=== PATIENT | female | born 1950 | race Caucasian/White ===

== ENCOUNTER 2019-11-28 07:27 | Emergency (ER) | payer MEDICARE, BC ==
[~2019-11-28] VITALS: Ht 165.1 cm; Wt 65.0 kg
[2019-11-28 07:32] VITALS: BP 192/76
[2019-11-28] MEDS ORDERED: BENZ-16 PO (08:23)
[2019-11-28] MEDS ORDERED: PRED50TA PO (08:23)
[2019-11-28] MEDS ORDERED: ipratropium/albuterol 3ml nebule NEB ONE (08:25)
[2019-11-28] MEDS ORDERED: DOXY100C76 PO (08:47)
== END 2019-11-28 09:17 | disposition home or self-care (01) ==
LOC: ER 07:28
DX: B34.9 Viral infection, unspecified (principal); J02.9 Acute pharyngitis, unspecified; J45.909 Unspecified asthma, uncomplicated; Z79.899 Other long term (current) drug therapy
CPT/HCPCS: 71046; 94640; 94760; 99283

== ENCOUNTER 2019-12-06 07:11 | Emergency (ER) | payer MEDICARE, BC ==
[~2019-12-06] VITALS: Ht 165.1 cm; Wt 75.0 kg
[~2019-12-06 07:11] MED LIST: BENZ-16 PO; PRED50TA PO
[2019-12-06] MEDS ORDERED: losartan 50mg tablet PO SCH (07:30)
[2019-12-06] MEDS ORDERED: losartan 50mg tablet PO ONE (07:30)
[2019-12-06] MEDS ORDERED: albuterol 2.5 MG/3 ML nebule CONTNEB PRN (07:55)
[2019-12-06] MEDS ORDERED: dexamethasone sod phosphate 10mg/ml inj IV STA (07:55)
[2019-12-06 08:03] LABS: CLARITY,URINE CLEAR (Clear); COLOR,URINE YELLOW (Yellow); GLUCOSE, URINE NEGATIVE (Neg); KETONES,URINE NEGATIVE (Neg); LEUKOCYTE ESTERASE ,URINE TRACE (Neg); NITRITES, URINE NEGATIVE (Neg); OCCULT BLOOD,URINE TRACE-LYSED (Neg); PROTEIN,URINE NEGATIVE (Neg); UROBILINOGEN,URINE 0.2 E.U/dL (0.2-1.0)
[2019-12-06 08:04] LABS: UA COLLECTION TYPE CLN CATCH MIDSTREAM
[2019-12-06 08:12] LABS: BACTERIA,URINE 1+ /HPF (Neg); MUCUS STRANDS FEW /LPF (Neg); RBC,URINE 0-2 /HPF (0-2); SQUAMOUS EPITHELIAL CELL,UR MANY /LPF (FEW); WBC,URINE 0-4 /HPF (0-4)
[2019-12-06 08:21] LABS: BASOPHILS # (AUTO) 0.1 X10'3 (0-0.2); BASOPHILS % (AUTO) 0.8 % (0-1); EOSINOPHILS # (AUTO) 0.1 X10'3 (0-0.9); EOSINOPHILS % (AUTO) 1.2 % (0-6); HEMATOCRIT 36.8 % (35.0-45.0); HEMOGLOBIN 12.7 g/dl (12.0-16.0); LYMPHOCYTES # (AUTO) 1.9 X10'3 (1.1-4.8); MEAN CORPUSCULAR HEMOGLOBIN 31.3 PG (27.0-31.0); MEAN CORPUSCULAR HGB CONC 34.4 g/dL (33.0-36.5); MEAN PLATELET VOLUME 6.9 FL (7.4-10.4); MONOCYTES # (AUTO) 0.9 X10'3 (0-0.9); MONOCYTES % (AUTO) 8.3 % (2-12); NEUTROPHILS % (AUTO) 72.7 % (42-75); PLATELET COUNT 426 X10'3 (140-440); RED BLOOD COUNT 4.05 X10'6 (4.20-5.60); RED CELL DISTRIBUTION WIDTH 12.9 % (11.5-14.5)
[2019-12-06] MEDS ORDERED: CefTRIAXone/D5W-Rocephin 1gm 50 ML IV ONE (08:30)
[2019-12-06] MEDS ORDERED: azithromycin 250mg tablet PO ONE (08:30)
[2019-12-06] MEDS ORDERED: PRED20TA PO (08:32)
[2019-12-06] MEDS ORDERED: AZIT250T83 PO (08:32)
[2019-12-06 08:37] LABS: ALANINE AMINOTRANSFERASE 36 U/L (12-78); ALBUMIN 3.7 G/DL (3.4-5.0); ALBUMIN/GLOBULIN RATIO 0.9 (1.1-1.5); ALKALINE PHOSPHATASE 47 IU/L (46-116); ANION GAP 8 (8-16); ASPARTATE AMINO TRANSFERASE 22 U/L (10-37); BILIRUBIN,TOTAL 0.4 MG/DL (0.1-1.0); BLOOD UREA NITROGEN 12 MG/DL (7-18); BUN/CREATININE RATIO 14.5 (6.6-38.0); C-REACTIVE PROTEIN 0.97 MG/DL (0.0-0.5); CALCIUM 9.4 MG/DL (8.5-10.1); CHLORIDE 100 MMOL/L (99-107); CREATININE 0.83 MG/DL (0.40-0.90); GLUCOSE 122 MG/DL (70-104); POTASSIUM 4.2 MMOL/L (3.5-5.1); SODIUM 133 MMOL/L (135-145); TOTAL CARBON DIOXIDE 25.3 MMOL/L (24-32); TOTAL PROTEIN 7.8 G/DL (6.4-8.2); eGFR 68 ML/MIN
[2019-12-06 10:06] VITALS: BP 162/68
--- NOTE | 2019-12-06 10:17 | NUR ---
RT RETURNED TO END 1HR LONG LEONEL JARRELL, PT HAD ALREADY BEEN DISCHARGED PER RN. UNABLE TO CHART POST VITALS.
== END 2019-12-06 10:21 | disposition home or self-care (01) ==
LOC: ER 07:11
DX: J15.9 Unspecified bacterial pneumonia (principal); J45.901 Unspecified asthma with (acute) exacerbation; Z87.891 Personal history of nicotine dependence; Z79.899 Other long term (current) drug therapy
CPT/HCPCS: 36415; 71046; 80053; 81001; 85025; 86140; 87502; 87503; 94644; 96365; 96375; 99285; J0696; J1100; 94760

== ENCOUNTER 2020-04-10 20:31 | Emergency (ER) | payer MEDICARE, BC ==
[~2020-04-10] VITALS: Ht 165.1 cm; Wt 81.7 kg
[2020-04-10] MEDS ORDERED: ceFAZolin 1gm IM kit IM ONE (21:10)
--- NOTE | 2020-04-10 21:37 | NUR ---
Per Dr. Foley order Tylenol 650mg po now for pain.
[2020-04-10] MEDS ORDERED: acetaminophen 325mg tablet PO ONE (21:40)
[2020-04-10] MEDS ORDERED: SULF1TAB49 PO (21:47)
[2020-04-10 22:11] VITALS: BP 142/66
== END 2020-04-10 22:15 | disposition home or self-care (01) ==
LOC: ER 20:32
DX: S51.811A Laceration without foreign body of right forearm, initial encounter (principal); S00.83XA Contusion of other part of head, initial encounter; T14.8XXA Other injury of unspecified body region, initial encounter; W18.30XA Fall on same level, unspecified, initial encounter; W22.8XXA Striking against or struck by other objects, initial encounter; Y93.89 Activity, other specified; Y92.89 Other specified places as the place of occurrence of the external cause; F10.129 Alcohol abuse with intoxication, unspecified; I10 Essential (primary) hypertension; J44.9 Chronic obstructive pulmonary disease, unspecified; Z72.89 Other problems related to lifestyle; Y99.8 Other external cause status; Y90.0 Blood alcohol level of less than 20 mg/100 ml
CPT/HCPCS: 12002; 70450; 72125; 96372; 99285; J0690

== ENCOUNTER 2022-05-20 09:22 | Emergency (ER) | payer MEDICARE, BC ==
[~2022-05-20] VITALS: Ht 162.6 cm; Wt 70.5 kg
[2022-05-20 09:33] VITALS: BP 228/86
[2022-05-20] MEDS ORDERED: LIDOcaine 5% patch TP STA (09:38)
[2022-05-20] MEDS ORDERED: acetaminophen 325mg tablet PO ONE (09:40)
[2022-05-20] MEDS ORDERED: HYDROcodone/acetaminophen 5mg/325mg tablet PO ONE (09:40)
--- NOTE | 2022-05-20 09:41 | NUR ---
MILKA GUERRA MADE AWARE OF PT HTN 228/85. RECEIVED ORDER FOR EKG. PT DENIES ANY SYMPTOMS
[2022-05-20] MEDS ORDERED: IBUP-1986 PO (10:31)
[2022-05-20] MEDS ORDERED: LIDO700A32 TOP (10:31)
[2022-05-20] MEDS ORDERED: HYDR-3965 PO (10:31)
[2022-05-20] MEDS ORDERED: ketorolac trometh. 30mg/ml inj. IM ONE (10:55)
== END 2022-05-20 11:07 | disposition home or self-care (01) ==
LOC: ER 09:22
DX: G89.29 Other chronic pain (principal); M54.42 Lumbago with sciatica, left side; M54.41 Lumbago with sciatica, right side; I10 Essential (primary) hypertension; J44.9 Chronic obstructive pulmonary disease, unspecified; Z88.8 Allergy status to other drugs, medicaments and biological substances; Z79.899 Other long term (current) drug therapy
CPT/HCPCS: 96372; 99284; J1885; 93005

== ENCOUNTER 2022-06-28 06:44 | Day surgery (SDC) | payer MEDICARE, BC ==
[2022-06-28] VITALS (9 sets, daily range): BP systolic 117–157; BP diastolic 48–68
[~2022-06-28] VITALS: Ht 162.6 cm; Wt 66.0 kg
[~2022-06-28 06:44] MED LIST changes: +IBUP-1986 PO; +LIDO700A32 TOP
[2022-06-28] MEDS ORDERED: cefazolin/dext.iso 2gm/100ml 100 ML IV ONE (07:30)
[2022-06-28] MEDS ORDERED: LIDOcaine 1%/PF 5ML 10 MG/ML VIAL ONE (08:12)
[2022-06-28] MEDS ORDERED: midazolam 1 mg/ML 2ml injection ONE ×3 (08:12→09:46)
[2022-06-28] MEDS ORDERED: fentaNYL/PF 50MCG/1 ML 2ML syringe ONE ×3 (08:12→09:50)
[2022-06-28] MEDS ORDERED: iohexol 300 MG/1 ML 10ml vial ONE ×2 (08:13→09:59)
[2022-06-28] MEDS ORDERED: BUDE10.26 INH (08:19)
[2022-06-28] MEDS ORDERED: IBUP-1984 PO (08:19)
[2022-06-28] MEDS ORDERED: LIDO700A47 TOP (08:19)
[2022-06-28] MEDS ORDERED: LOSA100T57 PO (08:19)
[2022-06-28] MEDS ORDERED: AMLO5TAB16 PO (08:19)
[2022-06-28] MEDS ORDERED: IPRA4AER INH (08:19)
[2022-06-28] MEDS ORDERED: HYDR-3964 PO (08:19)
[2022-06-28] MEDS ORDERED: ATEN25TA PO (08:19)
[2022-06-28] MEDS ORDERED: LEVO50TA8 PO (08:19)
[2022-06-28] MEDS ORDERED: ZOLP5TAB8 PO (08:19)
[2022-06-28] MEDS ORDERED: MULT-622 PO (08:19)
[2022-06-28] MEDS ORDERED: METH-797 PO (08:19)
[2022-06-28 08:45] LABS: BASOPHILS % (AUTO) 0.2 % (0-1); EOSINOPHILS % (AUTO) 0.4 % (0-6); HEMATOCRIT 32.5 % (35.0-45.0); HEMOGLOBIN 11.1 g/dl (12.0-16.0); LYMPHOCYTES # (AUTO) 1.2 X10'3 (1.1-4.8); LYMPHOCYTES % (AUTO) 19.2 % (21-51); MEAN CORPUSCULAR HEMOGLOBIN 31.1 PG (27.0-31.0); MEAN CORPUSCULAR VOLUME 91.6 FL (78-98); MEAN PLATELET VOLUME 6.7 FL (7.4-10.4); MONOCYTES # (AUTO) 0.2 X10'3 (0-0.9); MONOCYTES % (AUTO) 3.8 % (2-12); NEUTROPHILS # (AUTO) 4.6 X10'3 (1.8-7.7); NEUTROPHILS % (AUTO) 76.4 % (42-75); PLATELET COUNT 294 X10'3 (140-440); RED BLOOD COUNT 3.55 X10'6 (4.20-5.60); RED CELL DISTRIBUTION WIDTH 15.4 % (11.5-14.5); WHITE BLOOD COUNT 6.1 X10'3 (4.5-11.0)
[2022-06-28] MEDS ORDERED: diphenhydrAMINE 50 mg/ml inj ONE (09:00)
[2022-06-28] MEDS ORDERED: morphine 4 MG/ML inj SYRINge IV PRN (10:30)
[2022-06-28] MEDS ORDERED: normal saline 1000ml 1,000 ML IV SCH (10:30)
== END 2022-06-28 13:45 | disposition home or self-care (01) ==
LOC: SSTAY O 06:44
PROVIDERS: ATTEND Radiology Vascular & Interventional Radiology
DX: M80.08XA Age-related osteoporosis with current pathological fracture, vertebra(e), initial encounter for fracture (principal); M48.56XA Collapsed vertebra, not elsewhere classified, lumbar region, initial encounter for fracture; I10 Essential (primary) hypertension; E78.5 Hyperlipidemia, unspecified; J45.909 Unspecified asthma, uncomplicated; Z87.01 Personal history of pneumonia (recurrent); Z88.8 Allergy status to other drugs, medicaments and biological substances; Z98.890 Other specified postprocedural states
CPT/HCPCS: 22514; 22515; 36415; 85025; 88341; C1713; J1200; J2250; J2270; J3010; J3490; J7030; Q9967; 88173; 88305; 88342; 99152; 99153

== ENCOUNTER 2022-08-03 08:55 | Emergency (ER) | payer MEDICARE, BC ==
[~2022-08-03] VITALS: Ht 162.6 cm; Wt 62.7 kg
[~2022-08-03 08:55] MED LIST changes: +AMLO5TAB16 PO; +ATEN25TA PO; -BENZ-16 PO; +BUDE10.26 INH; +HYDR-3964 PO; +IBUP-1984 PO; -IBUP-1986 PO; +IPRA4AER INH; +LEVO50TA8 PO; -LIDO700A32 TOP; +LIDO700A47 TOP; +LOSA100T57 PO; +METH-797 PO; +MULT-622 PO; -PRED50TA PO; +ZOLP5TAB8 PO
[2022-08-03] MEDS ORDERED: morphine 4 MG/ML inj SYRINge IV ONE (09:50)
[2022-08-03] MEDS ORDERED: normal saline 1000ML IV soln IVB ONE (09:50)
[2022-08-03] MEDS ORDERED: ondansetron/PF 4mg/2ml inj IV ONE (09:50)
[2022-08-03 10:44] LABS: CLARITY,URINE SLIGHTLY CLOUDY (Clear); COLOR,URINE YELLOW (Yellow); GLUCOSE, URINE NEGATIVE (Neg); KETONES,URINE NEGATIVE (Neg); LEUKOCYTE ESTERASE ,URINE NEGATIVE (Neg); NITRITES, URINE NEGATIVE (Neg); OCCULT BLOOD,URINE NEGATIVE (Neg); PROTEIN,URINE 30 mg/dl (Neg); UROBILINOGEN,URINE 0.2 E.U/dL (0.2-1.0)
[2022-08-03 10:47] LABS: UA COLLECTION TYPE CLN CATCH MIDSTREAM
[2022-08-03 10:49] LABS: SQUAMOUS EPITHELIAL CELL,UR MODERATE /LPF (FEW)
[2022-08-03 10:51] LABS: BACTERIA,URINE FEW /HPF (Neg); RBC,URINE 0-2 /HPF (0-2); WBC,URINE 0-4 /HPF (0-4)
[2022-08-03 11:18] LABS: BASOPHILS % (AUTO) 0.4 % (0-1); EOSINOPHILS % (AUTO) 0.1 % (0-6); HEMATOCRIT 31.9 % (35.0-45.0); HEMOGLOBIN 10.9 g/dl (12.0-16.0); LYMPHOCYTES # (AUTO) 1.1 X10'3 (1.1-4.8); LYMPHOCYTES % (AUTO) 24.8 % (21-51); MEAN CORPUSCULAR HEMOGLOBIN 31.5 PG (27.0-31.0); MEAN CORPUSCULAR HGB CONC 34.2 g/dL (33.0-36.5); MEAN CORPUSCULAR VOLUME 92.2 FL (78-98); MEAN PLATELET VOLUME 6.9 FL (7.4-10.4); MONOCYTES # (AUTO) 0.2 X10'3 (0-0.9); MONOCYTES % (AUTO) 3.5 % (2-12); NEUTROPHILS # (AUTO) 3.3 X10'3 (1.8-7.7); NEUTROPHILS % (AUTO) 71.2 % (42-75); PLATELET COUNT 326 X10'3 (140-440); RED BLOOD COUNT 3.46 X10'6 (4.20-5.60); RED CELL DISTRIBUTION WIDTH 15.4 % (11.5-14.5); WHITE BLOOD COUNT 4.6 X10'3 (4.5-11.0)
[2022-08-03 11:31] LABS: APTT 29 SECONDS (22-32)
[2022-08-03 11:32] LABS: ALANINE AMINOTRANSFERASE 18 U/L (12-78); ALBUMIN 3.4 G/DL (3.4-5.0); ALBUMIN/GLOBULIN RATIO 0.5 (1.1-1.5); ALKALINE PHOSPHATASE 63 IU/L (46-116); ANION GAP 9 (8-16); ASPARTATE AMINO TRANSFERASE 17 U/L (10-37); BILIRUBIN,TOTAL 0.3 MG/DL (0.1-1.0); BLOOD UREA NITROGEN 10 MG/DL (7-18); BUN/CREATININE RATIO 13.9 (6.6-38.0); CALCIUM 9.9 MG/DL (8.5-10.1); CHLORIDE 95 MMOL/L (99-107); CREATININE 0.72 MG/DL (0.40-0.90); GLUCOSE 142 MG/DL (70-104); POTASSIUM 3.3 MMOL/L (3.5-5.1); SODIUM 133 MMOL/L (135-145); TOTAL CARBON DIOXIDE 29.3 MMOL/L (24-32); TOTAL PROTEIN 10.3 G/DL (6.4-8.2); eGFR 80 ML/MIN
[2022-08-03 11:35] LABS: ETHANOL < 0.010 GM/DL (0.0-0.010); LIPASE 105 U/L (73-393)
[2022-08-03] MEDS ORDERED: potassium CL 10mEq/100ml bag 100 ML IV ONE (12:40)
[2022-08-03 12:51] LABS: MAGNESIUM 1.8 MG/DL (1.5-2.4)
[2022-08-03] MEDS ORDERED: diazepam inj 5 MG/ML inj. IV ONE (13:15)
--- NOTE | 2022-08-03 13:19 | NUR ---
PROVIDER AWARE OF PT B/P
[2022-08-03] MEDS: magnesium 2GM in 50ml NS 50 ML IV SCH ×2 (13:20→13:40)
[2022-08-03 13:35] LABS: OCCULT BLOOD STOOL NEGATIVE (Neg)
[2022-08-03] MEDS ORDERED: HYDR-3965 PO (14:23)
[2022-08-03] MEDS ORDERED: CYCL-1 PO (14:23)
[2022-08-03 16:28] VITALS: BP 178/82
== END 2022-08-03 16:40 | disposition home or self-care (01) ==
LOC: ER 08:55
DX: M54.50 Low back pain, unspecified (principal); G89.29 Other chronic pain; R10.31 Right lower quadrant pain; R19.7 Diarrhea, unspecified; I10 Essential (primary) hypertension; J44.9 Chronic obstructive pulmonary disease, unspecified; Z72.89 Other problems related to lifestyle; Z88.8 Allergy status to other drugs, medicaments and biological substances; Z79.899 Other long term (current) drug therapy
CPT/HCPCS: 36415; 71045; 74176; 80053; 80320; 81001; 82272; 83690; 83735; 84484; 85025; 85610; 85730; 96365; 96366; 96375; 99285; J2270; J2405; J3360; J3475; J3480; J7030

== ENCOUNTER 2023-04-07 07:04 | Inpatient (IN) | payer MEDICARE, BC ==
[~2023-04-07] VITALS: Ht 157.5 cm; Wt 59.1 kg
[~2023-04-07 07:04] MED LIST changes: +CYCL-1 PO; -LOSA100T57 PO; +LOSA100T58 PO
[2023-04-07 08:11] LABS: ALANINE AMINOTRANSFERASE 15 U/L (12-78); ALBUMIN 3.1 G/DL (3.4-5.0); ALBUMIN/GLOBULIN RATIO 1.2 (1.1-1.5); ANION GAP 13 (8-16); ASPARTATE AMINO TRANSFERASE 12 U/L (10-37); BILIRUBIN,TOTAL 0.5 MG/DL (0.1-1.0); BLOOD UREA NITROGEN 6 MG/DL (7-18); BUN/CREATININE RATIO 9.1 (10.0-20.0); CHLORIDE 103 MMOL/L (99-107); CREATININE 0.66 MG/DL (0.40-0.90); GLUCOSE 121 MG/DL (70-104); MAGNESIUM 1.4 MG/DL (1.5-2.4); POTASSIUM 3.4 MMOL/L (3.5-5.1); SODIUM 137 MMOL/L (135-145); TOTAL CARBON DIOXIDE 21.4 MMOL/L (24-32); TOTAL PROTEIN 5.6 G/DL (6.4-8.2); eGFR 88 ML/MIN
[2023-04-07 08:22] LABS: ALKALINE PHOSPHATASE 77 IU/L (46-116)
[2023-04-07 08:49] LABS: CLARITY,URINE CLEAR (Clear); COLOR,URINE YELLOW (Yellow); GLUCOSE, URINE NEGATIVE (Neg); KETONES,URINE NEGATIVE (Neg); LEUKOCYTE ESTERASE ,URINE NEGATIVE (Neg); NITRITES, URINE NEGATIVE (Neg); OCCULT BLOOD,URINE NEGATIVE (Neg); PH,URINE 5.5 (4.8-8.0); PROTEIN,URINE NEGATIVE (Neg); UROBILINOGEN,URINE 0.2 E.U/dL (0.2-1.0)
[2023-04-07 08:53] LABS: UA COLLECTION TYPE CLN CATCH MIDSTREAM
[2023-04-07 09:12] LABS: BASOPHILS % (AUTO) 0.1 % (0-1); EOSINOPHILS % (AUTO) 0.7 % (0-6); HEMATOCRIT 25.6 % (35.0-45.0); HEMOGLOBIN 8.8 g/dl (12.0-16.0); LYMPHOCYTES # (AUTO) 0.2 X10'3 (1.1-4.8); LYMPHOCYTES % (AUTO) 30.2 % (21-51); MEAN CORPUSCULAR HEMOGLOBIN 31.2 PG (27.0-31.0); MEAN CORPUSCULAR HGB CONC 34.1 g/dL (33.0-36.5); MEAN CORPUSCULAR VOLUME 91.5 FL (78-98); MEAN PLATELET VOLUME 6.9 FL (7.4-10.4); MONOCYTES # (AUTO) 0.4 X10'3 (0-0.9); MONOCYTES % (AUTO) 67.7 % (2-12); NEUTROPHILS % (AUTO) 1.3 % (42-75); PLATELET COUNT 244 X10'3 (140-440); RED CELL DISTRIBUTION WIDTH 15.9 % (11.5-14.5)
[2023-04-07 09:14] LABS: WHITE BLOOD COUNT 0.6 X10'3 (4.5-11.0)
[2023-04-07] MEDS ORDERED: magnesium 2GM in 50ml NS 50 ML IV ONE (09:45)
[2023-04-07] MEDS ORDERED: cefepime 2g/NS 100ml ADVANTAGE 100 ML IV ONE (09:45)
[2023-04-07] MEDS ORDERED: acetaminophen 1,000mg/100ml IV 100 ML IV ONE (10:00)
[2023-04-07] MEDS ORDERED: vancomycin/NS 1 GM ADD-VANTAGE 250 ML IV ONE (10:00)
[2023-04-07 10:08] LABS: PLATELET ESTIMATE NORMAL
[2023-04-07 10:09] LABS: ELLIPTOCYTES FEW; TEAR DROP CELLS FEW
[2023-04-07] MEDS ORDERED: magnesium 2GM in 50ml NS 50 ML IV PRN (13:30)
[2023-04-07] MEDS ORDERED: diphenhydrAMINE 25mg capsule PO PRN (13:30)
[2023-04-07] MEDS ORDERED: acetaminophen 325mg tablet PO PRN ×2 (13:30)
[2023-04-07] MEDS ORDERED: potassium Cl 20 mEq SR tablet PO PRN (13:30)
[2023-04-07] MEDS ORDERED: bisacodyl 10mg suppository rectal RC PRN (13:30)
[2023-04-07] MEDS ORDERED: potassium Cl 40MEQ/1/2NS 520ml 520 ML IV PRN (13:30)
[2023-04-07] MEDS ORDERED: mag hydrox/Alum hydrox/simeth 30ml oral suspension PO PRN (13:30)
[2023-04-07] MEDS ORDERED: magnesium hydroxide 30ml (MOM) UD suspension PO PRN (13:30)
[2023-04-07] MEDS ORDERED: morphine 2 MG/ML inj. syringe IV PRN ×2 (13:30)
[2023-04-07] MEDS ORDERED: acetaminophen 650mg rectal suppository RC PRN (13:30)
[2023-04-07] MEDS ORDERED: HYDROcodone/acetaminophen 5mg/325mg tablet PO PRN (13:30)
[2023-04-07] MEDS ORDERED: ondansetron/PF 4mg/2ml inj IV PRN (13:30)
[2023-04-07] MEDS ORDERED: magnesium 4gm in 100ml NS 100 ML IV PRN (13:30)
[2023-04-07] MEDS: normal saline 1000ml 1,000 ML IV SCH ×2 (13:51→23:30)
[2023-04-07 13:52] LABS: HEMOGLOBIN A1C 5.6 % (4.5-6.2)
[2023-04-07] MEDS ORDERED: vancomycin inj 500 MG in normal saline 100ml IV soln 100 ML IV ONE (14:00)
[2023-04-07 15:52] VITALS: BP 133/53
[2023-04-07] MEDS ORDERED: normal saline 1000ml 1,000 ML IV ONE ×2 (16:20)
[2023-04-07 18:00] VITALS: BP 144/53
--- NOTE | 2023-04-07 18:35 | NUR ---
Received report from primary care nurse Mellisa SCHMITT. Assumed patient care. Patient is resting with relaxed and unlabored respirations on room air. Call light and items of frequent use within reach. Bed alarm on and audible. Will continue to monitor for changes.
--- NOTE | 2023-04-07 18:58 | NUR ---
RECEIVED ORDERS FROM DR. JEFFRIES FOR 2L BOLUS OF NS NOW. MEDS ADMINISTERED ORDERED.
--- NOTE | 2023-04-07 19:00 | NUR ---
Problems reprioritized. Patient report given, questions answered & plan of care reviewed with KESHIA ESTES.
[2023-04-07] MEDS: docusate sod 100mg capsule PO SCH (20:00)
[2023-04-07] MEDS: TBO-filgrastim 480 MCG/0.8ml syringe SQ SCH (20:05)
[2023-04-07] MEDS: cefepime 2g/NS 100ml ADVANTAGE 100 ML IV SCH (20:06)
[2023-04-07] MEDS: lactobacillus rhamnosus 10,000 MMU CELLS/CAPSULE PO SCH (20:11)
[2023-04-07] MEDS: potassium Cl 20 mEq SR tablet PO PRN (20:16)
[2023-04-07] MEDS: magnesium Cl slow-release 64mg tablet PO PRN (20:16)
[2023-04-07] MEDS: K and/or MAG REPLACEMENT MC SCH (20:17)
[2023-04-07] MEDS ORDERED: SULF1TAB45 PO (20:42)
[2023-04-07] MEDS ORDERED: LEVO750T68 PO (20:42)
[2023-04-07] MEDS ORDERED: ACYC-126 PO (20:42)
[2023-04-07] MEDS ORDERED: APIX5TAB3 PO (20:42)
[2023-04-07] MEDS ORDERED: GABA-530 PO (20:42)
[2023-04-07] MEDS ORDERED: FLUC200T93 PO (20:42)
[2023-04-07 22:00] VITALS: BP 120/47
[2023-04-07] MEDS ORDERED: vancomycin/NS 1 GM ADD-VANTAGE 250 ML IV SCH (23:00)
[2023-04-08] MEDS: HYDROcodone/acetaminophen 10/325mg tab PO PRN ×2 (01:44→19:37)
[2023-04-08 02:00] VITALS: BP 150/56
[2023-04-08] MEDS ORDERED: loperamide 2mg capsule PO PRN (02:00)
--- NOTE | 2023-04-08 02:07 | NUR ---
Noted patient coughing and burping after each sip of water. Notified MD of wound to right posterior ankle and coughing and burping after each sip. New orders obtained will implement.
[2023-04-08 06:00] VITALS: BP 143/55
--- NOTE | 2023-04-08 06:35 | NUR ---
Reported off to Mellisa RN. Patient is resting with relaxed and unlabored respirations on room air. In no apparent distress. Call light and items of frequent use within reach. Bed alarm on and audible.
--- NOTE | 2023-04-08 06:40 | NUR ---
Patient in room PCU 3011. I have received report from KESHIA ESTES, and had the opportunity to ask questions and assume patient care.PT RESTING COMFORTABLY, SHADE CLOSED PER PT REQUEST, NO OTHER NEEDS IDENTIFIED AT THIS TIME. WILL CONTINUE TO MONITOR.
[2023-04-08 07:51] LABS: LYMPHOCYTES # (AUTO) 0.1 X10'3 (1.1-4.8); MEAN CORPUSCULAR VOLUME 92.9 FL (78-98); MONOCYTES # (AUTO) 0.4 X10'3 (0-0.9)
[2023-04-08] MEDS: cefepime 2g/NS 100ml ADVANTAGE 100 ML IV SCH ×2 (07:51→19:26)
[2023-04-08 07:52] LABS: ALANINE AMINOTRANSFERASE 13 U/L (12-78); ALBUMIN 2.2 G/DL (3.4-5.0); ALBUMIN/GLOBULIN RATIO 0.9 (1.1-1.5); ALKALINE PHOSPHATASE 70 IU/L (46-116); ANION GAP 11 (8-16); ASPARTATE AMINO TRANSFERASE 13 U/L (10-37); BILIRUBIN,TOTAL 0.5 MG/DL (0.1-1.0); BLOOD UREA NITROGEN 10 MG/DL (7-18); BUN/CREATININE RATIO 15.4 (10.0-20.0); CHLORIDE 107 MMOL/L (99-107); CHOLESTEROL 96 MG/DL (0-200); CREATININE 0.65 MG/DL (0.40-0.90); GLUCOSE 79 MG/DL (70-104); HDL CHOLESTEROL 48 MG/DL (35-60); LDL CHOLESTEROL 28 MG/DL (50-100); MAGNESIUM 1.7 MG/DL (1.5-2.4); PHOSPHORUS 2.7 MG/DL (2.3-4.5); POTASSIUM 3.2 MMOL/L (3.5-5.1); SODIUM 137 MMOL/L (135-145); TOTAL CARBON DIOXIDE 18.7 MMOL/L (24-32); TOTAL PROTEIN 4.7 G/DL (6.4-8.2); TRIGLYCERIDES 85 MG/DL (20-135); eGFR 90 ML/MIN
[2023-04-08 07:56] LABS: BASOPHILS % (AUTO) 0.4 % (0-1); EOSINOPHILS % (AUTO) 2.3 % (0-6); HEMATOCRIT 27.7 % (35.0-45.0); HEMOGLOBIN 9.1 g/dl (12.0-16.0); LYMPHOCYTES % (AUTO) 24.5 % (21-51); MEAN CORPUSCULAR HEMOGLOBIN 30.7 PG (27.0-31.0); MONOCYTES % (AUTO) 68.7 % (2-12); NEUTROPHILS % (AUTO) 4.1 % (42-75); PLATELET COUNT 207 X10'3 (140-440); RED BLOOD COUNT 2.98 X10'6 (4.20-5.60); RED CELL DISTRIBUTION WIDTH 16.8 % (11.5-14.5)
[2023-04-08] MEDS: enoxaparin 40mg/0.4ml syringe SUBCUT SCH (07:58)
[2023-04-08] MEDS: lactobacillus rhamnosus 10,000 MMU CELLS/CAPSULE PO SCH ×2 (07:58→20:00)
[2023-04-08] MEDS: K and/or MAG REPLACEMENT MC SCH ×2 (08:00→20:00)
[2023-04-08] MEDS: docusate sod 100mg capsule PO SCH ×2 (08:00→20:00)
[2023-04-08 08:28] LABS: WHITE BLOOD COUNT 0.5 X10'3 (4.5-11.0)
--- NOTE | 2023-04-08 08:33 | NUR ---
PAGE SENT Message: [id number], NONI HOPSON, CRITICAL LAB: WBC 0.5. THANK YOU, KAYLA [id number] Custom Responses: promotional table spacer Transaction number: [id number]
[2023-04-08] MEDS: TBO-filgrastim 480 MCG/0.8ml syringe SQ SCH (08:34)
[2023-04-08] MEDS: normal saline 1000ml 1,000 ML IV SCH ×2 (09:30→19:30)
[2023-04-08] MEDS: potassium Cl 20 mEq SR tablet PO PRN ×3 (09:51→19:37)
[2023-04-08 12:00] VITALS: BP 151/64
--- NOTE | 2023-04-08 13:38 | NUR ---
PRESSURE ULCER EDUCATION: DEFINITION: A pressure ulcer is an area of skin that breaks down when you stay in one position too long. The constant pressure against the skin reduces the blood flow to that area and the affected tissue dies. CAUSES: "Being bedridden or in a wheelchair "Fragile skin "Having a chronic condition, such as diabetes or vascular disease "Inability to move certain parts of your body without assistance "Older age "Incontinence of urine or stool SYMPTOMS: "A reddened area that DOES NOT turn white when pressed on - this can be the beginning of a pressure ulcer "A blister, deep sore or a crater - these can be advanced pressure ulcers FIRST AID: "Relieve the pressure on this area "Keep the area clean and dry "Call your primary doctor if you see any of the above symptoms "DO NOT massage the area "DO NOT use a donut shaped or ring shaped pillow- these actually interfere with the blood flow and cause complications PREVENTION: "Check for pressure ulcers everyday "Change position at least every two hours to relieve pressure "Use items that help relieve pressure- pillows, sheepskin, foam padding, and powders. "Keep skin clean and dry "Eat healthy well balanced meals "Exercise daily IF YOU SEE ANY OF THESE SYMPTOMS WHILE IN THE HOSPITAL - TELL YOUR NURSE IMMEDIATELY. IF YOU SEE ANY OF THESE SYMPTOMS WHILE AT HOME OR HAVE ANY QUESTIONS OR CONCERNS ABOUT PRESSURE ULCERS - CALL YOUR PRIMARY DOCTOR IMMEDIATELY. Addendum: 04/08/23 at 1338 by Nan Toledo RN Amended: Links added.
[2023-04-08] MEDS ORDERED: LIDOcaine 1% 30ml preserv. free vial ONE (14:20)
[2023-04-08 15:45] VITALS: BP 151/56
--- NOTE | 2023-04-08 16:01 | NUR ---
PAGE SENT Message: [phone], NONI HOPSON, PT HAS TEMP OF 100.2 F, ORAL. LUMBAR PUNCTURE DONE, AWAITING TRANSFER TO MRI. THANK YOU, KAYLA [id number] Custom Responses: promotional table spacer Transaction number: [id number]
--- NOTE | 2023-04-08 16:02 | NUR ---
DR. THAPA CONSULTED TO POST LUMBAR PUNCTURE PROTOCOL. DR. THAPA SAID MRI WOULD BE FINE.
--- NOTE | 2023-04-08 16:16 | NUR ---
PAGE SENT Message: [phone], NONI HOPSON, PT REFUSING MRI, REPORTING PAIN AND FATIGUE. PT VERBALIZES THAT SHE WANTS TO WAIT AND HAVE PROCEDURE DONE AT [facility] WITH HER REGULAR DR. ADMINISTERING PAIN MEDS. THANK YOU, KAYLA [phone] Custom Responses: promotional table spacer Transaction number: [id number]
--- NOTE | 2023-04-08 16:37 | NUR ---
Malnutrition consult: Pt admit for neutropenia with neutropenic sepsis: recent bone marrow transplant per H&P. During time of visit, pt reports no recent weight loss. Pt reports UBW is about 120-130 pounds and chair scaled wt this admit of 59.09kg (130 pounds) per EMR, also indicate no weight loss at this time. Pt does not meet a minimum of two malnutrition criteria at this time. Pt currently on neutropenic diet and EC7 with PO intake 0% x 3 meals including one refusal but not agreeable to discussing food preferences nor an ensure at this time. Pt also reports no chewing or swallowing difficulties. Limited nutrition interventions given patient's preference at this time. Not pt WBC 0.5 and receiving probiotic per EMR, TOÑA Macedo discussed with RN holding current probiotic per physician discretion given WBC. LBM on 04/08 per EMR. Will monitor PO intake trend and make recommendations as medically appropriate. Recommendations: 1)continue neutropenic and soft to chew diet; encourage PO 2)routine bowel care as medically needed 3)weekly weight 4)consider holding probiotic due to WBC of 0.5 per physician discretion Addendum: 04/08/23 at [address] Amended: Links added. Addendum: 04/08/23 at [address] TOÑA has reviewed and approves of above note.
--- NOTE | 2023-04-08 16:45 | NUR ---
PAGE SENT Message: [id number], NONI HOPSON PT AGREED TO MRI AND IS CURRENTLY OFF FLOOR. THANK YOU, KAYLA [phone] Custom Responses: promotional table spacer Transaction number: [id number]
--- NOTE | 2023-04-08 17:13 | NUR ---
PAGE SENT Message: [phone], NONI HOPSON, MESSAGE FROM [employer], HE RECOMMENDS DISCONTINUING CULTERELLE, THERE IS A SLIM CHANCE IT CAN CAUSE SEPSIS IN PT'S WITH LOW WBC. THANK YOU, KAYLA Ramirez [phone] Custom Responses: promotional table spacer Transaction number: [id number]
[2023-04-08 18:00] VITALS: BP 150/66
--- NOTE | 2023-04-08 18:20 | NUR ---
Received report from primary care nurse Mellisa SCHMITT. Assumed patient care. Patient is resting with relaxed and unlabored respirations on 2LNC. In no apparent distress. Bed alarms on and audible. Call light and items of frequent use within reach. Will continue to monitor for changes.
--- NOTE | 2023-04-08 18:20 | NUR ---
Problems reprioritized. Patient report given, questions answered & plan of care reviewed with KESHIA ESTES.
[2023-04-08 22:00] VITALS: BP 146/74
[2023-04-08] MEDS: vancomycin/NS 1 GM ADD-VANTAGE 250 ML IV SCH (22:53)
[2023-04-09 02:00] VITALS: BP 142/62
[2023-04-09] MEDS: normal saline 1000ml 1,000 ML IV SCH (05:33)
[2023-04-09] MEDS: ipratropium/albuterol 3ml nebule NEB PRN ×2 (05:58→11:07)
[2023-04-09 06:00] VITALS: BP 158/67
--- NOTE | 2023-04-09 06:20 | NUR ---
Patient in room PCU 3011. I have received report from KESHIA ESTES, and had the opportunity to ask questions and assume patient care.
[2023-04-09 06:21] LABS: BASOPHILS % (AUTO) 0.4 % (0-1); EOSINOPHILS # (AUTO) 0.1 X10'3 (0-0.9); EOSINOPHILS % (AUTO) 6.5 % (0-6); HEMATOCRIT 25.1 % (35.0-45.0); HEMOGLOBIN 8.2 g/dl (12.0-16.0); LYMPHOCYTES # (AUTO) 0.1 X10'3 (1.1-4.8); LYMPHOCYTES % (AUTO) 6.9 % (21-51); MEAN CORPUSCULAR HEMOGLOBIN 30.9 PG (27.0-31.0); MEAN CORPUSCULAR HGB CONC 32.5 g/dL (33.0-36.5); MEAN CORPUSCULAR VOLUME 94.9 FL (78-98); MEAN PLATELET VOLUME 7.4 FL (7.4-10.4); MONOCYTES # (AUTO) 0.7 X10'3 (0-0.9); MONOCYTES % (AUTO) 43.4 % (2-12); NEUTROPHILS # (AUTO) 0.7 X10'3 (1.8-7.7); NEUTROPHILS % (AUTO) 42.8 % (42-75); PLATELET COUNT 180 X10'3 (140-440); RED BLOOD COUNT 2.64 X10'6 (4.20-5.60); RED CELL DISTRIBUTION WIDTH 17.4 % (11.5-14.5); WHITE BLOOD COUNT 1.6 X10'3 (4.5-11.0)
--- NOTE | 2023-04-09 06:21 | NUR ---
Reported off to Mellisa RN. Patient is awake and alert on 2LNC. In no apparent distress. Call light and items of frequent use within reach. Bed alarm on and audible.
[2023-04-09 06:33] LABS: ALANINE AMINOTRANSFERASE 12 U/L (12-78); ALBUMIN/GLOBULIN RATIO 0.8 (1.1-1.5); ALKALINE PHOSPHATASE 70 IU/L (46-116); ANION GAP 15 (8-16); ASPARTATE AMINO TRANSFERASE 11 U/L (10-37); BILIRUBIN,TOTAL 0.6 MG/DL (0.1-1.0); BLOOD UREA NITROGEN 12 MG/DL (7-18); BUN/CREATININE RATIO 17.9 (10.0-20.0); CALCIUM 6.6 MG/DL (8.5-10.1); CHLORIDE 109 MMOL/L (99-107); CREATININE 0.67 MG/DL (0.40-0.90); GLUCOSE 69 MG/DL (70-104); MAGNESIUM 1.4 MG/DL (1.5-2.4); PHOSPHORUS 1.6 MG/DL (2.3-4.5); POTASSIUM 3.3 MMOL/L (3.5-5.1); SODIUM 138 MMOL/L (135-145); TOTAL PROTEIN 4.4 G/DL (6.4-8.2); eGFR 87 ML/MIN
[2023-04-09 06:40] LABS: TOTAL CARBON DIOXIDE 13.9 MMOL/L (24-32)
--- NOTE | 2023-04-09 06:42 | NUR ---
PAGE SENT Message: [id number], NONI HOPSON, CRITICAL LAB: CO2 13.9. THANK YOU, KAYLA [id number] Custom Responses: promotional table spacer Transaction number: [id number]
[2023-04-09 07:38] LABS: TOTAL CELLS COUNTED 100
[2023-04-09 07:39] LABS: ANISOCYTOSIS 2+; PLATELET ESTIMATE NORMAL
[2023-04-09] MEDS: docusate sod 100mg capsule PO SCH ×2 (08:00→19:10)
[2023-04-09] MEDS: K and/or MAG REPLACEMENT MC SCH ×2 (08:00→19:13)
[2023-04-09] MEDS: cefepime 2g/NS 100ml ADVANTAGE 100 ML IV SCH ×2 (08:17→19:27)
[2023-04-09] MEDS: potassium Cl 20 mEq SR tablet PO PRN ×2 (08:21→12:19)
[2023-04-09] MEDS: magnesium Cl slow-release 64mg tablet PO PRN (08:21)
[2023-04-09] MEDS: enoxaparin 40mg/0.4ml syringe SUBCUT SCH (08:26)
--- NOTE | 2023-04-09 10:32 | NUR ---
PAGE SENT [phone], NONI HOPSON, PT REQUESTING BREATHING TREATMENT. PT REPORTS SHE WANTS TO DISCUSS A MED SHE USES AT HOME. THANK YOU, KAYLA [id number]
[2023-04-09 11:00] VITALS: BP 146/70
[2023-04-09] MEDS: SODIUM BICARB 150mEq/D5W 1L 1,000 ML IV SCH ×2 (12:19→22:04)
[2023-04-09] MEDS: albuterol 2.5 MG/3 ML nebule NEB SCH ×2 (13:51→19:16)
[2023-04-09 15:00] VITALS: BP 130/63
[2023-04-09 18:00] VITALS: BP 130/54
--- NOTE | 2023-04-09 18:02 | NUR ---
Problems reprioritized. Patient report given, questions answered & plan of care reviewed with KESHIA ESTES.
--- NOTE | 2023-04-09 18:31 | NUR ---
Received report from primary care nurse Mellisa SCHMITT. Assumed patient care. Patient is awake and alert on 2LNC. In no apparent distress. Bed alarms on and audible. Call light and items of frequent use within reach. Will continue to monitor for changes.
[2023-04-09] MEDS: budesonide 0.5mg/2ml UD nebule IH SCH (19:16)
[2023-04-09] MEDS: HYDROcodone/acetaminophen 10/325mg tab PO PRN (19:28)
[2023-04-09] MEDS: vancomycin/NS 1 GM ADD-VANTAGE 250 ML IV SCH (22:08)
[2023-04-10 02:00] VITALS: BP 130/58
[2023-04-10] MEDS: albuterol 2.5 MG/3 ML nebule NEB SCH ×3 (02:21→14:29)
--- NOTE | 2023-04-10 06:25 | NUR ---
Reported off to Kris SCHMITT. Patient is awake and alert on 2LNC. In no apparent distress. Call light and items of frequent use within reach. Bed alarm on and audible.
[2023-04-10 06:58] LABS: BASOPHILS % (AUTO) 0.2 % (0-1); EOSINOPHILS # (AUTO) 0.3 X10'3 (0-0.9); EOSINOPHILS % (AUTO) 6.5 % (0-6); HEMOGLOBIN 7.1 g/dl (12.0-16.0); LYMPHOCYTES # (AUTO) 0.1 X10'3 (1.1-4.8); LYMPHOCYTES % (AUTO) 2.5 % (21-51); MEAN CORPUSCULAR HEMOGLOBIN 30.6 PG (27.0-31.0); MEAN CORPUSCULAR VOLUME 89.9 FL (78-98); MEAN PLATELET VOLUME 7.9 FL (7.4-10.4); MONOCYTES # (AUTO) 1.1 X10'3 (0-0.9); MONOCYTES % (AUTO) 21.8 % (2-12); NEUTROPHILS # (AUTO) 3.6 X10'3 (1.8-7.7); PLATELET COUNT 161 X10'3 (140-440); RED BLOOD COUNT 2.32 X10'6 (4.20-5.60); RED CELL DISTRIBUTION WIDTH 17.3 % (11.5-14.5); WHITE BLOOD COUNT 5.2 X10'3 (4.5-11.0)
[2023-04-10 07:07] LABS: HEMATOCRIT 20.9 % (35.0-45.0)
[2023-04-10] MEDS: budesonide 0.5mg/2ml UD nebule IH SCH (07:24)
[2023-04-10 07:28] VITALS: BP 107/65
[2023-04-10 07:30] LABS: ALANINE AMINOTRANSFERASE 10 U/L (12-78); ALBUMIN 1.6 G/DL (3.4-5.0); ALBUMIN/GLOBULIN RATIO 0.8 (1.1-1.5); ALKALINE PHOSPHATASE 78 IU/L (46-116); ANION GAP 11 (8-16); ASPARTATE AMINO TRANSFERASE 9 U/L (10-37); BILIRUBIN,TOTAL 0.4 MG/DL (0.1-1.0); BLOOD UREA NITROGEN 9 MG/DL (7-18); BUN/CREATININE RATIO 14.3 (10.0-20.0); CALCIUM 6.3 MG/DL (8.5-10.1); CHLORIDE 103 MMOL/L (99-107); CREATININE 0.63 MG/DL (0.40-0.90); GLUCOSE 147 MG/DL (70-104); MAGNESIUM 1.5 MG/DL (1.5-2.4); SODIUM 137 MMOL/L (135-145); TOTAL CARBON DIOXIDE 22.8 MMOL/L (24-32); TOTAL PROTEIN 3.7 G/DL (6.4-8.2); eGFR > 90 ML/MIN
[2023-04-10 07:43] LABS: PHOSPHORUS 0.6 MG/DL (2.3-4.5); POTASSIUM 2.6 MMOL/L (3.5-5.1)
[2023-04-10 08:23] LABS: EBV NUCLEAR ANTIGEN AB, IGG <18.0 U/mL (0.0-17.9)
[2023-04-10] MEDS: K and/or MAG REPLACEMENT MC SCH (09:09)
[2023-04-10] MEDS: cefepime 2g/NS 100ml ADVANTAGE 100 ML IV SCH (09:25)
[2023-04-10] MEDS: docusate sod 100mg capsule PO SCH (09:26)
[2023-04-10] MEDS: enoxaparin 40mg/0.4ml syringe SUBCUT SCH (09:26)
[2023-04-10] MEDS: SODIUM BICARB 150mEq/D5W 1L 1,000 ML IV SCH (10:25)
[2023-04-10] MEDS ORDERED: normal saline 1000ml 1,000 ML IV SCH (11:45)
[2023-04-10] MEDS ORDERED: potassium phosphate inj 30 MMOL in normal saline 500ml IV soln 500 ML IV ONE (12:20)
[2023-04-10 13:46] VITALS: BP 120/88
[2023-04-10] MEDS ORDERED: potassium Cl 20 mEq SR tablet PO PRN ×2 (14:20)
[2023-04-10] MEDS ORDERED: potassium Cl 40MEQ/1/2NS 520ml 520 ML IV PRN (14:20)
[2023-04-10] MEDS ORDERED: magnesium Cl slow-release 64mg tablet PO PRN (14:20)
[2023-04-10] MEDS ORDERED: magnesium 4gm in 100ml NS 100 ML IV PRN (14:20)
[2023-04-10 15:20] LABS: CYTOMEGALOVIRUS AB, IGG <0.60 U/mL (0.00-0.59); CYTOMEGALOVIRUS AB, IGM <30.0 AU/mL (0.0-29.9); EBV AB VCA, IGM <36.0 U/mL (0.0-35.9)
--- NOTE | 2023-04-10 15:50 | NUR ---
Report called to Jimbo Staples RN
--- NOTE | 2023-04-10 16:34 | NUR ---
Pt transferred to [facility] via air reach. Pt left in stable condition with belongings.
[2023-04-10] MEDS ORDERED: VANCOMYCIN LEVEL IV ONE (21:30)
== END 2023-04-10 16:14 | disposition short-term general hospital (02) | DRG 872 ==
LOC: ER 07:05 → ED HOLD 13:32 → PCU 3S 16:01
PROVIDERS: ADMIT Family Medicine; ATTEND Family Medicine
PROC: 009U3ZX Drainage of Spinal Canal, Percutaneous Approach, Diagnostic (ICD-10-PCS; principal; 2023-04-08)
PROC: B01B1ZZ Fluoroscopy of Spinal Cord using Low Osmolar Contrast (ICD-10-PCS; 2023-04-08)
DX: A41.9 Sepsis, unspecified organism (principal); C90.00 Multiple myeloma not having achieved remission; E87.20 Acidosis, unspecified; G93.40 Encephalopathy, unspecified; G89.29 Other chronic pain; M54.9 Dorsalgia, unspecified; J44.9 Chronic obstructive pulmonary disease, unspecified; D70.9 Neutropenia, unspecified; E87.6 Hypokalemia; E03.9 Hypothyroidism, unspecified; E78.5 Hyperlipidemia, unspecified; E83.39 Other disorders of phosphorus metabolism; E86.0 Dehydration; I10 Essential (primary) hypertension; R50.81 Fever presenting with conditions classified elsewhere; Z20.822 Contact with and (suspected) exposure to COVID-19; Z88.8 Allergy status to other drugs, medicaments and biological substances; Z79.899 Other long term (current) drug therapy; Z79.890 Hormone replacement therapy; Z98.42 Cataract extraction status, left eye; Z98.41 Cataract extraction status, right eye
CPT/HCPCS: 36415; 62328; 70551; 71045; 77003; 80053; 80061; 81003; 83036; 83605; 83735; 84100; 84145; 84443; 85007; 85008; 85025; 86644; 86645; 86663; 86664; 86665; 86788; 86789; 87040; 87081; 87497; 87811; 87880; 92508; 92616; 93005; 94640; 94760; 97110; 97161; 97530; 99285; A4615; A4620; A4649; A6212; A6250; A6449; G0378; J0131; J0692; J1442; J1650; J2270; J2405; J3370; J3475; J3490; J7030; J7040

== ENCOUNTER 2023-05-31 06:49 | Emergency (ER) | payer MEDICARE, BC ==
[~2023-05-31] VITALS: Ht 157.5 cm; Wt 55.4 kg
[~2023-05-31 06:49] MED LIST changes: +ACYC-126 PO; +APIX5TAB3 PO; +FLUC200T93 PO; +GABA-530 PO; +LEVO750T68 PO; +SULF1TAB45 PO
[2023-05-31 07:22] LABS: BILIRUBIN,URINE SMALL (Neg); CLARITY,URINE SLIGHTLY CLOUDY (Clear); COLOR,URINE YELLOW (Yellow); GLUCOSE, URINE 250 mg/dl (Neg); KETONES,URINE TRACE mg/dl (Neg); LEUKOCYTE ESTERASE ,URINE NEGATIVE (Neg); NITRITES, URINE NEGATIVE (Neg); OCCULT BLOOD,URINE SMALL (Neg); PROTEIN,URINE TRACE mg/dl (Neg); UROBILINOGEN,URINE 0.2 E.U/dL (0.2-1.0)
[2023-05-31 07:27] LABS: UA COLLECTION TYPE CLN CATCH MIDSTREAM
[2023-05-31 07:31] LABS: BACTERIA,URINE 1+ /HPF (Neg); HYALINE CASTS 0-3 /LPF (NEGATIVE); MUCUS STRANDS MODERATE /LPF (Neg); RBC,URINE 0-2 /HPF (0-2); SQUAMOUS EPITHELIAL CELL,UR MODERATE /LPF (FEW); WBC,URINE 0-4 /HPF (0-4)
[2023-05-31 08:22] LABS: BASOPHILS % (AUTO) 0.2 % (0-1); EOSINOPHILS # (AUTO) 0.1 X10'3 (0-0.9); EOSINOPHILS % (AUTO) 2.6 % (0-6); HEMATOCRIT 31.8 % (35.0-45.0); HEMOGLOBIN 10.6 g/dl (12.0-16.0); LYMPHOCYTES # (AUTO) 0.3 X10'3 (1.1-4.8); LYMPHOCYTES % (AUTO) 6.2 % (21-51); MEAN CORPUSCULAR HEMOGLOBIN 32.2 PG (27.0-31.0); MEAN CORPUSCULAR HGB CONC 33.5 g/dL (33.0-36.5); MEAN PLATELET VOLUME 6.8 FL (7.4-10.4); MONOCYTES # (AUTO) 0.5 X10'3 (0-0.9); MONOCYTES % (AUTO) 9.8 % (2-12); NEUTROPHILS # (AUTO) 3.9 X10'3 (1.8-7.7); NEUTROPHILS % (AUTO) 81.2 % (42-75); PLATELET COUNT 369 X10'3 (140-440); RED BLOOD COUNT 3.31 X10'6 (4.20-5.60); RED CELL DISTRIBUTION WIDTH 14.3 % (11.5-14.5); WHITE BLOOD COUNT 4.8 X10'3 (4.5-11.0)
[2023-05-31 08:29] LABS: ALANINE AMINOTRANSFERASE 20 U/L (12-78); ALBUMIN 3.5 G/DL (3.4-5.0); ALBUMIN/GLOBULIN RATIO 1.1 (1.1-1.5); ALKALINE PHOSPHATASE 73 IU/L (46-116); ANION GAP 12 (8-16); ASPARTATE AMINO TRANSFERASE 13 U/L (10-37); BILIRUBIN,TOTAL 0.3 MG/DL (0.1-1.0); BLOOD UREA NITROGEN 14 MG/DL (7-18); BUN/CREATININE RATIO 16.1 (10.0-20.0); CALCIUM 8.3 MG/DL (8.5-10.1); CHLORIDE 100 MMOL/L (99-107); CREATININE 0.87 MG/DL (0.40-0.90); GLUCOSE 139 MG/DL (70-104); LIPASE 56 U/L (73-393); POTASSIUM 3.4 MMOL/L (3.5-5.1); SODIUM 136 MMOL/L (135-145); TOTAL CARBON DIOXIDE 24.2 MMOL/L (24-32); TOTAL PROTEIN 6.8 G/DL (6.4-8.2); eCRCL 46 ML/MIN; eGFR 64 ML/MIN
[2023-05-31 08:51] VITALS: BP 156/60; PULSE 77; RESP 15; TEMP 98.1; O2SAT 98
[2023-05-31] MEDS ORDERED: CIPR750T14 PO (09:00)
[2023-05-31] MEDS ORDERED: METR-159 PO (09:00)
[2023-05-31 10:31] LABS: TOTAL CELLS COUNTED 100
[2023-05-31 10:32] LABS: PLATELET ESTIMATE NORMAL; TOXIC VACUOLATION FEW
== END 2023-05-31 09:05 | disposition home or self-care (01) ==
LOC: ER 06:50
DX: K52.9 Noninfective gastroenteritis and colitis, unspecified (principal); J44.9 Chronic obstructive pulmonary disease, unspecified; I10 Essential (primary) hypertension; Z85.79 Personal history of other malignant neoplasms of lymphoid, hematopoietic and related tissues; Z88.8 Allergy status to other drugs, medicaments and biological substances; Z79.2 Long term (current) use of antibiotics; Z79.899 Other long term (current) drug therapy; Z79.1 Long term (current) use of non-steroidal anti-inflammatories (NSAID)
CPT/HCPCS: 36415; 80053; 81001; 83690; 85007; 85025; 99283

== ENCOUNTER 2025-07-16 07:14 | Emergency (ER) | payer MEDICARE, BC ==
[~2025-07-16] VITALS: Ht 157.5 cm; Wt 50.9 kg
[~2025-07-16 07:14] MED LIST changes: -ACYC-126 PO; -AMLO5TAB16 PO; -APIX5TAB3 PO; +ASPI-1265 PO; -ATEN25TA PO; +BUDE10.2 INH; -BUDE10.26 INH; +BUDE10.32; -CYCL-1 PO; +EMPA25TA; -FLUC200T93 PO; -GABA-530 PO; +GABA300C; -HYDR-3964 PO; -IBUP-1984 PO; +LENA10CA4; -LEVO750T68 PO; -LIDO700A47 TOP; -LOSA100T58 PO; +LOSA25TA41 PO; -METH-797 PO; -MULT-622 PO; -SULF1TAB45 PO; -ZOLP5TAB8 PO
--- NOTE | 2025-07-16 07:36 | Physician Documentation ---
History of Present Illness ~ Chief Complaint: Shoulder pain Stated Complaint: SHOULDER PAIN Time Seen by MD: 07:26 Primary Medical Doctor: MACK Source: patient Mode of Arrival: POV Exam Limitations: no limitations HPI Ms. Pepe is a 75 y/o female who presents to the ED with c/o right shoulder pain. She states that she was doing yard work (raking leaves) 2 weeks ago and then a few days ago, lifted a heavy cast iron stove and started having significant pain in the right shoulder that gets worse with attempting to move the arm. She denies history of direct trauma. No history of previous shoulder shoulder or rotator cuff injury. She denies numbness/tingling to the RUE. No history of previous shoulder dislocation. Tetanus within 5 years?: Yes Medication Reconciliation Allergies: Coded Allergies: hydrochlorothiazide (Verified Allergy, Unknown, 07/16/25) Scheduled Aspirin (Aspirin), 1 TAB.CHEW PO DAILY, (Reported) Budesonide/Formoterol Fumarate (Symbicort 160-4.5 Mcg Inhaler), 2 PUFFS INH Q12H, (Reported) Ipratropium/Albuterol Sulfate (Combivent Respimat Inhal [place]), 1 PUFFS INH QID, (Reported) Levothyroxine Sodium (Levothyroxine Sodium), 1 TAB PO QAM, (Reported) Losartan Potassium (Losartan Potassium), 25 MG PO DAILY Miscellaneous Medications Budesonide/Formoterol Fumarate (Breyna 160-4.5 Mcg Inhaler), (Reported) Empagliflozin (Jardiance), (Reported) Gabapentin (Neurontin), (Reported) Lenalidomide (Lenalidomide), (Reported) Past Medical History Past Medical History: Hypertension, Asthma, COPD, Pneumonia, Chronic Back Pain, *CANCER* Past Surgical History: noncontributory Alcohol Use: Heavy Drug Use: none Lives In: Home Occupation: retired Review of Systems ROS As stated above in the HPI, otherwise all systems are reviewed and negative. Physical Exam Vital Signs: Temperature: 97.3, Source: Temporal, Heart Rate: 69, Respiratory Rate: 16, BP: 169/61, Pulse Oximetry: 97, Weight: 50.910 Oxygen Flow Rate: 0 Progress Results/Orders Results/Orders Orders - THOM ELKINS MD Shoulder, Complete (Min 2 Vws) (07/16/25 07:28) * Arm Sling To Be Placed Overn (07/16/25 07:39) Completed Orders - THOM ELKINS MD Shoulder, Complete (Min 2 Vws) (07/16/25 07:28) Oxycodone Sr Tablet (Oxycontin Tablet) (07/16/25 07:40) Acetaminophen 325mg Tablet (Tylenol Tabl (07/16/25 07:40) Hydromorphone 0.5 Mg/0.5 Ml/Pf (Dilaudid (07/16/25 07:55) Medications Received in ER Medications (Trade) Dose Ordered Sig/Juventino Route PRN Reason Start Time Stop Time Status Last Admin Dose Admin (Tylenol tablet) 650 mg ONCE ONCE PO 07/16/25 07:40 07/16/25 07:41 DC 07/16/25 08:00 650 MG (Dilaudid inj.) 0.5 mg ONCE ONCE IM 07/16/25 07:55 07/16/25 07:56 DC 07/16/25 08:02 0.5 MG Vital Signs 07/16/25 07/16/25 07/16/25 07:15 07:31 07:42 Temp 97.3 Pulse 69 66 Resp 16 18 B/P (MAP) 169/61 141/62 (88) Pulse Ox 97 94 O2 Flow Rate 0 0 EKG/XRAY/CT/US/VASC/MRI Bone/Soft Tissue X-Ray (Spine) : Interpreted By: self Views: 2 VIEW Indication: pain Location: other Impression: normal Additional Comment R shoulder x-ray (as interpreted by me): Chronic changes. No acute osseous abnormality noted. Medical Decision Making Differential Dx:Considerations: Include: AC separation, Adhesive capsulitis, arthritis, Bicipital tendonitis, Calcific tendonitis, Dislocation, Impingement syndrome, Neurovascular Injury, Rotator cuff injury, Subacromial bursitis Additional Comments While here in the ED, she remained hemodynamically normal with ABC's intact and in NAD. She is afebrile and nontoxic. Neurovascularly intact to the RUE. No sensory deficits appreciated. I reviewed the plain films of her right shoulder and there is no radiographic evidence of an acute osseous abnormality or acute shoulder dislocation. As there was no history of direct trauma to the arm, further imaging here today in the ED is not clinically indicated and can be done on an outpatient bases if conservative symptomatic therapy does not improve her pain. Will also place in a sling for comfort with instructions for ROM exercises. She was given follow-up and return instructions. She voiced understanding and agreement with d/c instructions. Departure Disposition: HOME / SELF CARE / HOMELESS Impression: Primary Impression: Shoulder pain Condition: Improved Discharge Instructions: Shoulder Pain Referrals: NO PRIMARY CARE PROVIDER (PCP) Comments Please follow up with her primary care provider. Please return to the emergency department with any worsening or recurrent symptoms or any additional concerning symptoms that we discussed here today. Education Educated: Patient Educated regarding: diagnosis, treatment Signature Scribe Signature: N/A Attestation: N/A THOM ELKINS MD Jul 16, 2025 07:36
[2025-07-16] MEDS ORDERED: oxyCODONE SR 10mg (sust. release) tab PO ONE (07:40)
[2025-07-16] MEDS: HYDROmorphone inj. 0.5 MG/0.5 ML DISP.SYRIN IM ONE (08:02)
--- NOTE | 2025-07-16 08:14 | RADIOLOGY REPORT ---
CLINICAL INDICATION: Right shoulder pain TECHNIQUE: 2 radiographic views of the right shoulder were obtained. Comparison: None FINDINGS/IMPRESSION: There is no evidence of acute fracture or dislocation. Severe osteoarthrosis of the right acromioclavicular joint.
[2025-07-16 08:19] VITALS: BP 170/59; PULSE 78; RESP 18; TEMP 97.3; O2SAT 98
== END 2025-07-16 08:15 | disposition home or self-care (01) ==
LOC: ER 07:15
DX: M25.511 Pain in right shoulder (principal); G89.29 Other chronic pain; I10 Essential (primary) hypertension; J44.9 Chronic obstructive pulmonary disease, unspecified; Z88.8 Allergy status to other drugs, medicaments and biological substances; Z79.82 Long term (current) use of aspirin; Z79.899 Other long term (current) drug therapy; X50.0XXA Overexertion from strenuous movement or load, initial encounter; Y93.89 Activity, other specified; Y92.89 Other specified places as the place of occurrence of the external cause; Y99.8 Other external cause status
CPT/HCPCS: 73030; 96372; 99283; J1171; A4565